=== PATIENT | male | born 1940 | race African-American/Black ===

== ENCOUNTER 2019-12-02 12:16 | Inpatient (IN) | payer MEDICARE, OTHER ==
[~2019-12-02] VITALS: Ht 167.6 cm; Wt 65.8 kg
[2019-12-02] MEDS ORDERED: HYDROXYCHLOROQUINE SULFATE 200MG TABLET PO NR (15:45)
[2019-12-02] MEDS: AZITHROMYCIN 500 MG TABLET PO SCH (16:28)
[2019-12-02 16:47] LABS: HEMATOCRIT 32.6 % (42.0-52.0); MEAN CORPUSCULAR HEMOGLOBIN 32.2 pg (28.0-32.0); MEAN CORPUSCULAR VOLUME 95.8 fL (80.0-94.0); PLATELET 248 x1000/uL (130-400); RED CELL DISTRIBUTION WIDTH 12.9 % (11.6-14.6)
[2019-12-02 16:58] LABS: CHLORIDE 102 mEq/L (98-107)
[2019-12-02 22:22] VITALS: BP 120/68
[2019-12-02] MEDS ORDERED: METF-416 PO (22:22)
[2019-12-02] MEDS ORDERED: METF-414 PO (22:22)
[2019-12-02] MEDS ORDERED: ATOR10TA69 MT (22:22)
[2019-12-02 22:30] VITALS: BP 120/68
[2019-12-02] MEDS ORDERED: DEXTROSE 50% WATER 50ML SYRINGE IV PRN (22:30)
[2019-12-02] MEDS: HYDROXYCHLOROQUINE SULFATE 200MG TABLET PO SCH (22:55)
[2019-12-02] MEDS: GUAIFENESIN-DM 200MG-20MG/10ML UDC PO PRN (22:55)
[2019-12-02] MEDS: ATORVASTATIN CALCIUM 10MG TABLET PO SCH (23:04)
[2019-12-02] MEDS ORDERED: GUAIFENESIN/CODEINE 200-20MG/10ML UDC PO PRN (23:30)
[2019-12-03] VITALS: BP 128/70
[2019-12-03 06:00] VITALS: BP 109/61
[2019-12-03] MEDS: BLOOD SUGAR DIAGNOSTIC STRIP TEST SCH ×4 (06:17→20:45)
[2019-12-03] MEDS: INSULIN LISPRO 100 UNITS/ML SUBCUT SCH ×4 (06:18→20:45)
[2019-12-03 08:00] VITALS: BP 130/71
[2019-12-03] MEDS: METFORMIN HCL 500MG TABLET PO SCH ×2 (08:52→17:41)
[2019-12-03] MEDS: HYDROXYCHLOROQUINE SULFATE 200MG TABLET PO SCH ×2 (08:53→17:41)
[2019-12-03] MEDS: AZITHROMYCIN 500 MG TABLET PO SCH (08:53)
[2019-12-03] MEDS ORDERED: METFORMIN HCL 500MG TABLET PO SCH (09:00)
[2019-12-03 12:00] VITALS: BP 127/64
[2019-12-03 16:00] VITALS: BP 114/66
[2019-12-03 20:00] VITALS: BP 126/70
[2019-12-03] MEDS: FAMOTIDINE 20MG TABLET PO SCH ×2 (21:00→21:16)
[2019-12-03] MEDS: ATORVASTATIN CALCIUM 10MG TABLET PO SCH (21:00)
[2019-12-03] MEDS: GUAIFENESIN-DM 200MG-20MG/10ML UDC PO PRN (22:07)
[2019-12-04] VITALS: BP 114/68
[2019-12-04] MEDS: BLOOD SUGAR DIAGNOSTIC STRIP TEST SCH ×4 (06:40→20:26)
[2019-12-04] MEDS: INSULIN LISPRO 100 UNITS/ML SUBCUT SCH ×4 (06:59→20:26)
[2019-12-04 08:00] VITALS: BP 120/69
[2019-12-04] MEDS: HYDROXYCHLOROQUINE SULFATE 200MG TABLET PO SCH ×2 (08:06→17:31)
[2019-12-04] MEDS: FAMOTIDINE 20MG TABLET PO SCH ×2 (08:06→09:00)
[2019-12-04] MEDS: AZITHROMYCIN 500 MG TABLET PO SCH (08:06)
[2019-12-04] MEDS: METFORMIN HCL 500MG TABLET PO SCH ×2 (08:06→17:31)
[2019-12-04 09:35] LABS: BASOPHILS % 0.6 % (0.0-2.0); EOSINOPHILS % 0.7 % (0.0-5.0); HEMATOCRIT. 35.4 % (42.0-52.0); HEMOGLOBIN. 12.1 g/dL (14.0-18.0); LYMPHOCYTES % 30.7 % (20.0-50.0); MEAN CORPUSCULAR HEMOGLOBIN 32.2 pg (28.0-32.0); MEAN CORPUSCULAR VOLUME 94.4 fL (80.0-94.0); MEAN PLATELET VOLUME 8.2 fl (7.4-10.4); MONOCYTES % 14.2 % (2.0-8.0); NEUTROPHILS % 53.8 % (40.0-76.0); PLATELET 412 x1000/uL (130-400); RED BLOOD CELL COUNT 3.75 mill/uL (4.7-6.1); RED CELL DISTRIBUTION WIDTH 13.3 % (11.6-14.6)
[2019-12-04 09:55] LABS: CHLORIDE 102 mEq/L (98-107)
[2019-12-04 12:00] VITALS: BP 103/67
[2019-12-04 16:00] VITALS: BP 123/69
[2019-12-04] MEDS: MULTIVITAMINS,THER W-MINERALS TABLET PO SCH (17:30)
[2019-12-04 20:00] VITALS: BP 122/68
[2019-12-04] MEDS: GUAIFENESIN-DM 200MG-20MG/10ML UDC PO PRN (20:26)
[2019-12-04] MEDS: ATORVASTATIN CALCIUM 10MG TABLET PO SCH (20:26)
[2019-12-05] VITALS: BP 119/62
[2019-12-05] MEDS: GUAIFENESIN-DM 200MG-20MG/10ML UDC PO PRN (00:40)
[2019-12-05 06:00] VITALS: BP 116/63
[2019-12-05] MEDS: INSULIN LISPRO 100 UNITS/ML SUBCUT SCH ×2 (06:18→12:10)
[2019-12-05] MEDS: BLOOD SUGAR DIAGNOSTIC STRIP TEST SCH ×2 (06:18→11:40)
[2019-12-05 08:00] VITALS: BP 121/62
[2019-12-05] MEDS: MULTIVITAMINS,THER W-MINERALS TABLET PO SCH (08:02)
[2019-12-05] MEDS: AZITHROMYCIN 500 MG TABLET PO SCH (08:02)
[2019-12-05] MEDS: HYDROXYCHLOROQUINE SULFATE 200MG TABLET PO SCH (08:02)
[2019-12-05] MEDS: METFORMIN HCL 500MG TABLET PO SCH (08:02)
[2019-12-05] MEDS: FAMOTIDINE 20MG TABLET PO SCH (08:03)
[2019-12-05] MEDS ORDERED: ZINC SULFATE 220 MG ( 50 ) CAPSULE PO SCH (09:00)
[2019-12-05 12:00] VITALS: BP 128/78
[2019-12-05] MEDS ORDERED: HYDR200T35 PO (13:15)
[2019-12-05 15:23] VITALS: BP 128/78
== END 2019-12-05 16:50 | disposition home or self-care (01) | DRG 871 ==
LOC: EEVIPCON 12:26 → ER 12:26 → 7EST 16:54 → EEVIPCON 16:54 → ENRESERV 18:59
PROVIDERS: ADMIT Internal Medicine Critical Care Medicine; ATTEND Internal Medicine Critical Care Medicine
DX: A41.89 Other specified sepsis (principal); J96.01 Acute respiratory failure with hypoxia; J12.89 Other viral pneumonia; R74.0 Nonspecific elevation of levels of transaminase and lactic acid dehydrogenase [LDH]; B97.29 Other coronavirus as the cause of diseases classified elsewhere; E11.9 Type 2 diabetes mellitus without complications; Z79.84 Long term (current) use of oral hypoglycemic drugs
CPT/HCPCS: 36415; 71045; 80053; 82728; 82962; 83036; 83605; 83615; 84145; 84484; 85025; 85027; 85379; 86141; 87635; 87804; 93005; 99285

== ENCOUNTER → 2020-02-26 | Outpatient (CLI) | payer MEDICARE, OTHER ==
[~2020-02-26] MED LIST: ATOR10TA69 MT; HYDR200T35 PO; METF-414 PO; METF-416 PO
== END | disposition home or self-care (01) ==
LOC: RAD 11:41
PROVIDERS: ATTEND Thoracic Surgery (Cardiothoracic Vascular Surgery)
DX: J18.9 Pneumonia, unspecified organism (principal); M47.814 Spondylosis without myelopathy or radiculopathy, thoracic region; M46.04 Spinal enthesopathy, thoracic region
CPT/HCPCS: 71046